=== PATIENT | male | born 1965 | race Caucasian/White ===

== ENCOUNTER 2017-01-08 07:25 | Emergency (ER) | payer BC ==
[2017-01-08 07:30] VITALS: BP 131/75; PULSE 80; RESP 16; TEMP 97.9; O2SAT 97
--- NOTE | 2017-01-08 08:01 | EDPHY ---
H & P Time Seen by Provider: 01/08/17 07:40 HPI/ROS: HPI Right evans pain. 51-year-old male by private vehicle. This patient is training for a marathon. He is supposed to do a marathon this weekend. He reports pain to the anterior aspect of his distal right leg ongoing for 1 week but worse this morning. Worse with ambulation and running. Pain described as sharp and aching. He denies any acute traumatic event. No associated swelling or discoloration. No other complaints. ROS: Constitutional: No fever, no chills. No weakness. Musculoskeletal: No back pain. No neck pain. As above. Skin: No rashes. No lacerations or abrasions. Neurological: No headache. No focal weakness or altered sensation. Past medical history: Denies any past medical history. Social history: Here by himself. Nonsmoker. No alcohol. Physical Exam: General Appearance: Alert, no distress. This patient is responding to questions appropriately and in full sentences. This patient appears well- hydrated and well-nourished. Eyes: Pupils equal and round no pallor or injection. No lid edema, erythema or injection. Right leg and ankle exam: Mild tenderness on palpation anterior distal tibial area. No associated warmth, erythema, edema, ecchymosis. No bony deformity or crepitus noted on palpation of this area. No pain elicited by axial compression of the ankle and tibia. The bony aspects of the right foot in the right ankle are nontender on palpation. The right knee and right ankle range actively and passively without any pain or impingement. The right lower extremity is neurovascularly intact. The skin is intact. Neurological: Motor sensory function is grossly intact. Cranial nerves are normal. Gait is normal. Skin: Warm and dry, no rashes. Musculoskeletal: As above. Extremities are symmetrical. All joints range without pain or impingement. Psychiatric: No agitation. No depression. Database: EKG: Imaging: Right tib fib x-ray series: Negative for fracture, subluxation, dislocation. Interpreted by me. Procedures: Emergency department course: Patient's presentation is consistent with a evans splint. No radiographic evidence of pathology involving his right leg. Plan will be to discharge him on high-dose ibuprofen. I have recommended that he cease all running and physical exercise for 5 days. He is then to ease back into his training as tolerated. I recommended follow up with his primary care physician for re- evaluation. He is in agreement with this plan. Return to emergency department precautions discussed. All of his questions were answered. He was discharged in good condition. Differential Diagnosis: The differential diagnosis on this patient includes but is not limited to evans splints. Fracture, subluxation, dislocation unlikely. This represents a partial list of diagnoses considered. These considerations are based on history , physical exam, past history, reassessment and diagnostic testing. Smoking Status: Never smoked Constitutional: Initial Vital Signs Temperature (C) 36.6 C 01/08/17 07:25 Heart Rate 80 01/08/17 07:25 Respiratory Rate 16 01/08/17 07:25 Blood Pressure 131/75 H 01/08/17 07:25 O2 Sat (%) 97 01/08/17 07:25 O2 Delivery Mode Room Air Allergies/Adverse Reactions: bee venom protein (honey bee) Allergy (Verified 01/08/17 07:31) bee Allergy (Uncoded 01/08/17 07:31) Home Medications: Medication Instructions Recorded NK [No Known Home Meds] 01/08/17 Departure - Departure Disposition: Home, Routine, Self-Care Clinical Impression: Evans splints Condition: Good Instructions: Evans Splints (ED) Additional Instructions: Read and follow provided instructions. Follow-up with your primary care physician in 2-3 days for re-evaluation as discussed. You can be referred to a sports fitness and wellness director as needed by her primary care physician for ongoing management. Ibuprofen dosin mg every 6 hours with meals for the next 3 days only. No running and limited physical activity for the next 5 days. Avoid any activity which exacerbates your pain for 5 days. Return to the emergency department for worsening pain, swelling, fever, discoloration or other serious concerns.
== END 2017-01-08 08:22 | disposition home or self-care (01) ==
DX: S86.891A Other injury of other muscle(s) and tendon(s) at lower leg level, right leg, initial encounter (principal); X58.XXXA Exposure to other specified factors, initial encounter